=== PATIENT | male | born 1975 | race Caucasian/White ===

== ENCOUNTER 2020-07-19 16:19 | Emergency (ER) | payer OTHER ==
[2020-07-19] MEDS ORDERED: ROBAXIN750 MG PO (19:07)
[2020-07-19] MEDS ORDERED: PREDNISONE50 MG PO (19:07)
== END 2020-07-19 20:40 | disposition home or self-care (01) ==
LOC: FER 16:19
DX: M54.5 Low back pain (principal); G89.29 Other chronic pain; K03.81 Cracked tooth; J45.909 Unspecified asthma, uncomplicated; F17.210 Nicotine dependence, cigarettes, uncomplicated
CPT/HCPCS: 99283; J7512